=== PATIENT | male | born 1975 | race African-American/Black ===

== ENCOUNTER 2017-10-17 18:21 | Emergency (ER) | payer MEDICAID ==
[~2017-10-17] VITALS: Ht 177.8 cm; Wt 65.0 kg
[~2017-10-17 18:21] MED LIST: IBUP-1484 PO
[2017-10-17 18:24] VITALS: BP 131/93
[2017-10-17] MEDS ORDERED: AZITHROMYCIN 500 MG TABLET PO ONE (18:30)
[2017-10-17] MEDS ORDERED: CEFTRIAXONE 250 MG IM ONE (18:30)
[2017-10-17] MEDS ORDERED: AZITHROMYCIN 500 MG TABLET ONE (18:37)
[2017-10-17] MEDS ORDERED: CEFTRIAXONE 250 MG ONE (18:37)
[2017-10-17] MEDS ORDERED: IBUPROFEN 800 MG TABLET PO STA (19:11)
[2017-10-17] MEDS ORDERED: IBUPROFEN 200 MG TABLET ONE (19:15)
[2017-10-17 19:33] LABS: MICROSCOPIC AUTO
[2017-10-17 19:41] LABS: CULTURE INDICATED? NO
== END 2017-10-17 19:24 | disposition home or self-care (01) ==
LOC: ED 19:20
DX: Z20.2 Contact with and (suspected) exposure to infections with a predominantly sexual mode of transmission (principal); F17.200 Nicotine dependence, unspecified, uncomplicated
CPT/HCPCS: 81001; 87491; 87591; 96372; 99284; J0696